=== PATIENT | female | born 1965 | race Caucasian/White ===

== ENCOUNTER 2025-07-20 10:57 | Outpatient (CLI) | payer OTHER, SELFPAY ==
--- NOTE | ~2025-07-20 | US_ITS ---
EXAM/PROCEDURE: US pelvic complete HISTORY: post menopausal bleeding COMPARISON: None available. TECHNIQUE: Pelvic ultrasound performed FINDINGS: The uterus measures 7.4 x 3.7 x 4.7 cm Endometrial stripe: 4 mm Right ovary: 2.4 x 1.7 x 2.8 cm Left ovary: 1.3 x 0.9 x 1.2 cm Both ovaries appear within normal limits. IMPRESSION: Endometrial stripe of 4 mm at the upper limit of normal for postmenopausal woman who is not on hormone replacement therapy. Reviewed, dictated and finalized at location A. [employer] IMPRESSION: Endometrial stripe of 4 mm at the upper limit of normal for postmen opausal woman who is not on hormone replacement therapy.
== END 2025-07-20 10:58 | disposition home or self-care (01) ==
LOC: MICIMG 10:58
DX: N95.0 Postmenopausal bleeding (principal)
CPT/HCPCS: 76856